=== PATIENT | male | born 1990 | race African-American/Black ===

== ENCOUNTER 2019-12-31 23:39 | Emergency (ER) | payer OTHER, SELFPAY ==
[2019-12-31 23:42] VITALS: BP 137/97; PULSE 92; RESP 18; TEMP 36.8; O2SAT 100
--- NOTE | 2020-01-01 01:07 | ED.EAR ---
HPI - Ear Problem General Chief complaint: Ear Stated complaint: Foreign Body, Ear Time Seen by Provider: 01/01/20 00:22 Source: patient and family Mode of arrival: ambulatory Limitations: no limitations History of Present Illness HPI Narrative: Patient is 29 years old -[place] male who was cleaning his right ear using Q-tip, lost to the tip of it inside the ear. Patient denies any fever, chills, nausea, vomiting or any complaint about the ear prior to foreign body insertion Review of Systems Review of Systems: Narrative: CONSTITUTIONAL: Denies fever, chills, or sweats. EYES: Denies visual changes, redness, or discharge. ENT: Denies rhinorrhea, congestion, sore throat, or otalgia. CARDIOVASCULAR: Denies chest pain, palpitations, or edema. RESPIRATORY: Denies cough or dyspnea. GASTROINTESTINAL: Denies abdominal pain, nausea, vomiting, or diarrhea. GENITOURINARY: Denies dysuria or hematuria. SKIN: Denies rash or itching. MUSCULOSKELETAL: Denies back pain, joint pain, or myalgia. NEUROLOGIC: Denies headache, numbness, or weakness. PSYCHIATRIC: Denies anxiety or depression. [facility] Social History Social History (Updated 01/01/20 @ 01:10 by Abdoulaye Owens MD) Tobacco type: cigarettes Exam Narrative: Exam Narrative: General appearance: Well-developed, well-nourished Skin: Normal color Head: Normocephalic, nontraumatic Eyes: Clear conjunctiva ENT: Oropharynx normal, tip of Q-tip at the right ear canal Neck: Supple, nontender Chest and respiratory: Airway patent, no respiratory distress, no accessory muscle use Heart: Regular rate/rhythm Course Course Emergency Course: Resolved, foreign body was pulled out Vital Signs Vital signs: Vital Signs Temperature 36.8 C 12/31/19 23:42 Pulse Rate 92 12/31/19 23:42 Respiratory Rate 18 12/31/19 23:42 Blood Pressure 137/97 H 12/31/19 23:42 Pulse Oximetry 100 12/31/19 23:42 Temperature 36.8 C 12/31/19 23:42 Pulse Rate 92 12/31/19 23:42 Respiratory Rate 18 12/31/19 23:42 Blood Pressure 137/97 H 12/31/19 23:42 Pulse Oximetry 100 12/31/19 23:42 Procedures Foreign Body Removal Foreign Body #1: Foreign Body Removal Date: 01/01/20 Foreign Body Removal Time: 01:12 Time Out Performed: yes Site: right and ear Description of foreign body: other (The tip of a Q-tip) Sedation/Analgesia: none Technique: removal with forceps Confirmed by:: direct visualization Complications: none Post-procedure exam: awake, alert Neurovascular: normal distal pulse Foreign Body Removal Narrative: Large piece of cotton was removed using mosquito forceps. No complication. Patient tolerated the procedure well. Medical Decision Making MDM Narrative Medical decision making narrative: Right ear foreign body need to be removed Vital Signs Vital Signs: Vital Signs Temperature 36.8 C 12/31/19 23:42 Pulse Rate 92 12/31/19 23:42 Respiratory Rate 18 12/31/19 23:42 Blood Pressure 137/97 H 12/31/19 23:42 Pulse Oximetry 100 12/31/19 23:42 Temperature 36.8 C 12/31/19 23:42 Pulse Rate 92 12/31/19 23:42 Respiratory Rate 18 12/31/19 23:42 Blood Pressure 137/97 H 12/31/19 23:42 Pulse Oximetry 100 12/31/19 23:42 Critical Care Time Critical Care Time Critical Care Time: No Discharge Plan Discharge Clinical Impression: Acute foreign body of right ear Qualifiers: Encounter type: initial encounter Qualified Code(s): T16.1XXA - Foreign body in right ear, initial encounter Patient Disposition: Home, Self-Care Condition: Stable Instructions: Ear Foreign Body (ED) Additional Ins
[2020-01-01 01:15] VITALS: BP 149/87; PULSE 88; RESP 16; O2SAT 99
== END 2020-01-01 01:17 | disposition home or self-care (01) ==
PROVIDERS: Emergency Provider Emergency Medicine
DX: T16.1XXA Foreign body in right ear, initial encounter (principal); F17.210 Nicotine dependence, cigarettes, uncomplicated
CPT/HCPCS: 69200; 99282